=== PATIENT | female | born 1960 | race Hispanic/Latino ===

== ENCOUNTER 2023-02-08 05:55 | Day surgery (SDC) | payer OTHER ==
[2023-02-07 11:16] VITALS: BP 145/61; PULSE 58; RESP 16
[~2023-02-08] VITALS: Ht 162.6 cm; Wt 61.2 kg
[~2023-02-08 05:55] MED LIST: CHOL200013 PO; MAGN250T10 PO
[2023-02-08 06:30] VITALS: BP 145/60; PULSE 87; RESP 16
[2023-02-08] MEDS ORDERED: PROPOFOL 10 MG/ML 20ML VIAL IV ONE (07:20)
[2023-02-08] MEDS ORDERED: 0.9%NACL 1000ML 1,000 ML IV ONE (08:05)
== END 2023-02-08 08:30 | disposition home or self-care (01) ==
LOC: ENDO 05:55 → DAH 05:55 → ENDO 08:30
PROVIDERS: ATTEND Internal Medicine
DX: Z12.11 Encounter for screening for malignant neoplasm of colon (principal); D12.3 Benign neoplasm of transverse colon; I10 Essential (primary) hypertension; F41.9 Anxiety disorder, unspecified; Z98.891 History of uterine scar from previous surgery
CPT/HCPCS: 45385; J7030 ×2; J2704; A4620; A4215 ×2; A4223; A7002; A4222; A4221; A4663; A4606; J3490